=== PATIENT | male | born 1960 | race Caucasian/White ===

== ENCOUNTER 2019-11-27 08:10 | Outpatient (CLI) | payer OTHER ==
--- NOTE | 2019-11-27 10:08 | MRI Report ---
Reason: WEAKNESS Procedure Date: 11/27/2019 Accession Number: [id number] / [id number] Procedure: MRI - Cervical Spine W/O CPT Code: Final Report FULL RESULT: EXAM: MRI CERVICAL SPINE WITHOUT CONTRAST EXAM DATE: 11/27/2019 09:46 AM. CLINICAL HISTORY: Chronic posterior neck pain. Numbness of the right arm. Bilateral upper extremity weakness. COMPARISONS: None. TECHNIQUE: Multiplanar, multisequence T1-weighted and fluid-sensitive sequences of the cervical spine without contrast. Other: None. FINDINGS: Neurologic Structures: The visualized posterior fossa structures are unremarkable. No signal abnormality in the visualized spinal cord. Alignment: Slight degenerative retrolisthesis of C5 on C6. Bone Marrow: No focal marrow edema or acute vertebral body height loss. Interspace Levels/Facets: C1-C2: Unremarkable. C2-C3: Unremarkable. C3-C4: Moderate disk degeneration with disk space dehydration and narrowing especially posteriorly. Unremarkable facets. Prominent broad-based posterior disk osteophyte complex with additional asymmetric left intraforaminal and far lateral disk protrusion. More prominent left than right uncinate process hypertrophy and spurring. Moderate central stenosis. Ventral thecal sac effacement. Mild flattening/contouring of the anterior cord surface. Moderate to severe left lateral recess stenosis and left foraminal stenosis. Correlate with a left C4 radiculopathy. Right foraminal stenosis is minimal. No focal cord signal abnormality despite mass-effect on the anterior cord by posterior disk osteophyte complex that is eccentric to the left. C4-C5: Mild disk degeneration. Minimal to mild right greater than left facet arthropathy. Shallow circumferential bulge. Minimal marginal spurring. No significant stenosis. C5-C6: Mild to moderate disk degeneration. Moderate bilateral uncinate process spurring and hypertrophy. Circumferential disk bulge. Minimal facet arthropathy. Mild central stenosis without cord compression. Moderate bilateral degenerative foraminal stenosis. C6-C7: Mild to moderate disk degeneration. Moderately prominent broad-based posterior disk protrusion accompanied by mild osteophytic spurring. Disk bulge extends laterally into both foramina which are narrowed also by uncinate process hypertrophy. Minimal to mild central stenosis without cord impingement. Moderate left and potentially severe right foraminal stenosis. C7-T1: Unremarkable disk space. No significant stenosis or disk herniation. Mild facet arthropathy. Musculature: No acute edema, mass or asymmetric fatty atrophy. Other: No focal prevertebral edema. Probable retention cyst incompletely visualized at the floor of the right maxillary sinus. IMPRESSION: 1. Moderate central stenosis with mild anterior cord impingement at C3-C4 from prominent broad-based posterior degenerative disk osteophyte complex that is eccentric to the left. 2. Moderate to severe left lateral recess stenosis at C3-C4. 3. Minimal to mild central stenosis without cord impingement at C5-C6 and C6-C7. 4. Potentially significant degenerative foraminal stenosis, especially notable on the left at C3-C4, bilaterally at C5-C6 and right greater than left at the C6-C7 level. 5. No focal cord signal abnormality. [facility]IA
== END 2019-11-27 08:11 | disposition home or self-care (01) ==
LOC: DI 08:10
PROVIDERS: ATTEND Physician Assistant Surgical
DX: M50.31 Other cervical disc degeneration, high cervical region (principal); M48.02 Spinal stenosis, cervical region; M47.812 Spondylosis without myelopathy or radiculopathy, cervical region; M50.21 Other cervical disc displacement, high cervical region
CPT/HCPCS: 72141

== ENCOUNTER 2021-03-29 15:26 | Outpatient (CLI) | payer OTHER ==
--- NOTE | 2021-03-29 16:29 | XRAY Report ---
PROCEDURE: Toe(s) LT INDICATIONS: FX OF L GREAT TOE TECHNIQUE: 2 views of the left great toe(s) acquired. COMPARISON: None FINDINGS: Bones: Comminuted fractures involving first distal phalangeal shaft is seen extending to the distal p halangeal tuft. Slight displacement of fractured fragments are noted with up to 2 mm diastases. No ot her fracture or dislocation is seen. No suspicious bony lesions. Soft tissues: No suspicious soft tissue densities. IMPRESSION: Acute comminuted and minimally displaced first distal phalangeal fracture as above. Reviewed by: Ector Campos MD on 03/29/2021 4:28 PM PDT Approved by: Ector Campos MD on 03/29/2021 4:28 PM PDT Station ID: [id number]
== END 2021-03-29 23:59 | disposition home or self-care (01) ==
LOC: DI.N 15:26
PROVIDERS: ATTEND Physician Assistant Medical
DX: S92.425A Nondisplaced fracture of distal phalanx of left great toe, initial encounter for closed fracture (principal)

== ENCOUNTER 2021-05-05 11:17 | Outpatient (CLI) | payer OTHER ==
--- NOTE | 2021-05-05 16:57 | XRAY Report ---
PROCEDURE: Toe(s) LT INDICATIONS: FRACTURE OF LEFT TOE TECHNIQUE: 3 views of the great toe(s) acquired. COMPARISON: 03/29/2021 FINDINGS: Bones: Interval progress in healing of a comminuted distal phalanx great toe fracture. Soft tissues: No suspicious soft tissue densities. IMPRESSION: Interval progress in healing of a comminuted distal phalanx great toe fracture. Reviewed by: Ambrosio Salmeron MD on 05/05/2021 4:56 PM PDT Approved by: Ambrosio Salmeron MD on 05/05/2021 4:56 PM PDT Station ID: [id number]
== END 2021-05-05 11:18 ==
LOC: DI.N 11:17
PROVIDERS: ATTEND Physician Assistant
DX: S92.422D Displaced fracture of distal phalanx of left great toe, subsequent encounter for fracture with routine healing (principal)
CPT/HCPCS: 73660

== ENCOUNTER 2021-06-07 13:36 | Outpatient (CLI) | payer OTHER ==
--- NOTE | 2021-06-16 10:11 | XRAY Report ---
PROCEDURE: Toe(s) LT INDICATIONS: FRACTURE OF LEFT TOE TECHNIQUE: AP view of the foot and 2 views of the great toe acquired. COMPARISON: Left great toe radiographs 05/05/2021 FINDINGS: Bones: A comminuted fracture of the fracture of the first distal phalanx is redemonstrated with uncha nged alignment. Mild progressive healing changes are seen with continued visualization of multiple fr acture lines. Soft tissues: No suspicious soft tissue densities. IMPRESSION: Comminuted first distal phalangeal fracture redemonstrated with unchanged alignment. Reviewed by: Sanchez Laird MD on 06/16/2021 10:09 AM PDT Approved by: Sanchez Laird MD on 06/16/2021 10:09 AM PDT Station ID: [id number]
== END 2021-06-07 13:37 | disposition home or self-care (01) ==
LOC: DI.N 13:36
PROVIDERS: ATTEND Physician Assistant
DX: S92.425A Nondisplaced fracture of distal phalanx of left great toe, initial encounter for closed fracture (principal)
CPT/HCPCS: 73660